=== PATIENT | female | born 1975 | race Hispanic/Latino ===

== ENCOUNTER 2022-12-16 18:36 | Emergency (ER) | payer MEDICAID, SELFPAY ==
[2022-12-16 18:42] VITALS: BP 147/67; PULSE 82; RESP 16; TEMP 36.5; O2SAT 100; BMI 29.8
[2022-12-16 19:20] LABS: Add Manual Diff / Slide Review NO; Basophils Absolute Auto 100 /uL (0-100); Eosinophils Absolute Auto 200 /uL (0-450); Eosinophils Percent Auto 2.8 % (2-4); Hematocrit 28.9 % (36-46); Hemoglobin 10.1 g/dL (12.0-16.0); Lymphocytes Absolute Auto 1900 /uL (1100-4500); Lymphocytes Percent Auto 32.6 % (25-40); Mean Corpuscular HGB Conc 34.9 % (30-36); Mean Corpuscular Hemoglobin 28.5 PG (26-34); Mean Corpuscular Volume 81.5 fL (80-100); Monocytes Absolute Auto 400 /uL (0-900); Monocytes Percent Auto 6.5 % (3-14); Neutrophils Absolute Auto 3200 /uL (1500-7000); Neutrophils Percent Auto 57.1 % (50-75); Platelet Count 324 X10^3/uL (150-400); Red Blood Cell Count 3.55 X10^6/uL (4.0-5.2); Red Cell Distribution Width 14.4 % (11.6-14.8); White Blood Cell Count 5.7 X10^3/uL (4.5-11.0)
[2022-12-16 19:32] LABS: Alanine Aminotransferase 18 IU/L (<35); Albumin 3.9 g/dL (3.5-5.0); Albumin Globulin Ratio 1.1 (1.0-2.8); Alkaline Phosphatase 77 U/L (38-126); Aspartate Aminotransferase 22 IU/L (14-36); Bilirubin Total 0.3 mg/dL (0.2-1.3); Blood Urea Nitrogen 23 mg/dL (7-17); Calcium 9.1 mg/dL (8.4-10.2); Carbon Dioxide 23 mmol/L (22-32); Chloride 98 mmol/L (98-107); Estimated Glomerular Filt Rate 52 mL/min (>60); Globulin 3.4 g/dL (1.7-4.1); Glucose 399 mg/dL (70-100); HEMOLYSIS 19 (0-50); Lipase 348 U/L (23-300); Sodium 131 mmol/L (137-145); Total Protein 7.3 g/dL (6.3-8.2)
--- NOTE | 2022-12-16 19:45 | PC.NURSE ---
c/o frequency urination with dysuria, recent travel,
[2022-12-16] MEDS: SODIUM CHLORIDE 0.9% 1,000 ML 1000 ML IV (19:52)
[2022-12-16 20:07] LABS: Fractionated Inspired Oxygen 21; HCO3 VBG 24 mmol/L (24-28); Oxygen Saturation VBG 51 % (70-75); PO2 VBG 29 mmHg (35-45); Total CO2 VBG 25 mmol/L (24-29); pH VBG 7.36 (7.33-7.43)
[2022-12-16 20:58] LABS: Ketones (Beta-Hydroxybutyrate) 0 mmol/L (<0.27)
--- NOTE | 2022-12-16 21:25 | ED.ABDPAIN ---
HPI - Abdominal Pain General Chief Complaint: Abdominal Pain Stated Complaint: abd pain Time Seen by Provider: 12/16/22 19:40 Source: patient Mode of arrival: Ambulatory Limitations: language barrier (used interpreted line) History of Present Illness HPI narrative: 47-year-old female with a history diabetes on glimepiride and metformin daily. Patient presents with lower abdominal pain more on the right than left but bilaterally as well as bilateral flank pain. She states it feels like when she has a menses but she is not menstruating currently. Patient states last menses was November 15. Patient states no fevers, she is had some chills. She states some nausea but no vomiting she is had some diarrhea intermittent with constipation. No black or bloody stools. She is noted some polyuria, no dysuria. No new vaginal bleeding or discharge. She denies any chest pain or shortness of breath, no syncope. Describes some low-grade fevers. Patient did travel last 3 days he returned on Friday. She presents with another family member who is here with sore throat and upper respiratory symptoms. Patient takes metformin and glimepiride she has been off these medications for several days to a week. Patient states she is had prior appendectomy, hysterectomy as well as cholecystectomy. No known drug allergies. No tobacco, alcohol or illicit. Patient lives on [facility], she went to the primary care clinic there but was told to come here for evaluation. Related Data Home Medications Medication Instructions Recorded Confirmed glimepiride 4 mg tablet 4 mg PO DAILY 12/16/22 12/16/22 metformin 1,000 mg tablet 1,000 mg PO DAILY 12/16/22 12/16/22 Previous Rx's Medication Instructions Recorded glimepiride 4 mg tablet 4 mg PO DAILY #30 tabs 12/16/22 metformin 1,000 mg tablet 1,000 mg PO DAILY #30 tabs 12/16/22 Allergies Allergy/AdvReac Type Severity Reaction Status Date / Time No Known Drug Allergies Allergy Verified 12/16/22 18:42 Review of Systems Review of Systems ROS Unobtainable: All systems reviewed & are unremarkable except as noted in HPI and below Patient History Social History Smoking Status: Never smoker Smoking Status: Never smoker Substance Use Type: does not use Exam Narrative Exam Narrative: GENERAL: Alert and oriented x three, well-appearing female in mild distress. HEENT: Head normocephalic, atraumatic, EOMI, pupils reactive, face symmetric, moist mucous membranes NECK: Supple, full range of motion CARDIOVASCULAR: Regular rate and rhythm without murmurs, rubs or gallops. RESPIRATORY: Breath sounds equal bilaterally, no wheezes rales or rhonchi. No tachypnea accessory muscle use. Speaks in full sentences. ABDOMEN: Soft, nontender on exam. Normoactive bowel sounds all 4 quadrants. No guarding or rebound, rigidity, no mass, no pulsatile mass or bruit. : No CVA tenderness EXTREMITIES: Normal range of motion, no clubbing or edema. Neurovascularly intact NEUROLOGICAL: Cranial nerves II through XII grossly intact. Moving all extremities SKIN: Warm, dry, no petechiae, no rashes or lesions. Initial Vital Signs Initial Vital Signs: Vital Signs Temperature 97.7 F 12/16/22 18:42 Pulse Rate 82 12/16/22 18:42 Respiratory Rate 16 12/16/22 18:42 Blood Pressure 147/67 H 12/16/22 18:42 Pulse Oximetry 100 12/16/22 18:42 Oxygen Delivery Method Room Air 12/16/22 18:42 Course Orders Ordered: ED Orders 12/16/22 18:48 EKG-12 Lead Stat 12/16/22 19:00 Complete Blood Count AUTO DIFF Stat Comprehensive Metabolic Panel Stat Ketones (Beta-Hydroxybutyrate) Stat Lipase Stat 12/16/22 19:54 VBG [Venous Blood Gas] Stat 12/16/22 22:15 Urine Culture Stat Discontinued Medications Sodium Chloride (Normal Saline 0.9%) 1,000 mls @ 1,000 mls/hr IV BOLUS ONE Stop: 12/16/22 20:39 Last Infusion: 12/16/22 21:27 Dose: Infused Documented By: Admin: 12/16/22 19:52 Dose: 1,000 mls/hr Documented By: MYLES Ondansetron HCl (Ondansetron 4 Mg Odt) 4 mg PO NOW PRN PRN Reason: Nausea And Vomiting Ondansetron HCl (Ondansetron 4 Mg/2 Ml Inj) 4 mg IV NOW PRN PRN Reason: Nausea And Vomiting Vital Signs Vital signs: Vital Signs - 8 hr 12/16/22 18:42 12/16/22 22:32 Temperature 97.7 F Pulse Rate 82 69 Respiratory Rate 16 16 Blood Pressure 147/67 H 116/55 L Pulse Oximetry 100 97 Oxygen Delivery Method Room Air MDM - Abdominal Pain Lab Data 12/16/22 19:00 12/16/22 19:00 Labs: Lab Results 12/16/22 12/16/22 Range/Units 19:00 19:54 WBC 5.7 (4.5-11.0) X10^3/uL RBC 3.55 L (4.0-5.2) X10^6/uL Hgb 10.1 L (12.0-16.0) g/dL Hct 28.9 L (36-46) % MCV 81.5 (80-100) fL MCH 28.5 (26-34) PG MCHC 34.9 (30-36) % RDW 14.4 (11.6-14.8) % Plt Count 324 (150-400) X10^3/uL Neut % (Auto) 57.1 (50-75) % Lymph % (Auto) 32.6 (25-40) % Chambers % (Auto) 6.5 (3-14) % Eos % (Auto) 2.8 (2-4) % Baso % (Auto) 1.0 (0-2) % Neut # (Auto) 3200 (9819-6620) /uL Lymph # (Auto) 1900 (3510-8840) /uL Chambers # (Auto) 400 (0-900) /uL Eos # (Auto) 200 (0-450) /uL Baso # (Auto) 100 (0-100) /uL VBG pH 7.36 (7.33-7.43) VBG pCO2 43.0 L (45-50) mmHg VBG pO2 29 L (35-45) mmHg VBG HCO3 24 (24-28) mmol/L VBG Total CO2 25 (24-29) mmol/L VBG O2 Saturation 51 L (70-75) % VBG Base Excess -1.0 L (0-4) mmol/L FiO2 21 Sodium 131 L (137-145) mmol/L Potassium 4.0 (3.4-5.1) mmol/L Chloride 98 (98-107) mmol/L Carbon Dioxide 23 (22-32) mmol/L BUN 23 H (7-17) mg/dL Creatinine 1.28 H (0.52-1.04) mg/dL Estimated GFR 52 L (>60) mL/min BUN/Creatinine Ratio 18.0 (6-22) Glucose 399 H (70-100) mg/dL Calcium 9.1 (8.4-10.2) mg/dL Total Bilirubin 0.3 (0.2-1.3) mg/dL AST 22 (14-36) IU/L ALT 18 (<35) IU/L Alkaline Phosphatase 77 (38-126) U/L Total Protein 7.3 (6.3-8.2) g/dL Albumin 3.9 (3.5-5.0) g/dL Globulin 3.4 (1.7-4.1) g/dL Albumin/Globulin Ratio 1.1 (1.0-2.8) Lipase 348 H (23-300) U/L Ketones 0 (<0.27) mmol/L Point of care testing: Point of Care Testing Test Results Negative Glucose POC 413 Urine Dip Bedside Urine Glucose 1000 mg/dl Bedside Urine Bilirubin - Negative Bedside Urine Ketone - Negative Urine Specific [place] 1.005 Bedside Urine Occult Blood - Negative Bedside Urine pH 7.0 Bedside Urine Protein - Negative Bedside Urine Urobilinogen - Negative Bedside Urine Nitrite - Negative Bedside Urine Leukocytes - Negative Esterase ECG Data Attestation: I personally reviewed and interpreted this ECG as follows: Interpretation: Sinus rhythm rate of 75 AL 164 QRS of [address] QTC [address] No acute [address] elevation depression noted. MDM Narrative Medical decision making narrative: This is a 47-year-old female who presents with lower abdominal pain states feels very similar to her menses but is not currently menstruating. She is nontender on examination workup shows hyperglycemia with a glucose of 399, negative test point of care urine shows glucose but no ketones. No signs of infection. Hemoglobin 10, hematocrit is 28 platelets are normal with a normal white count. VBG shows a pH 7.36. Sodium is 131 on corrected, potassium of 4, BUN 23 with creatinine of 1.28, glucose 399 with normal LFTs and a lipase of 348. Anion gap is 10. No signs of DKA. Patient has been off her medications for several days some of her symptoms may be secondary to hyperglycemia abdominal exam is overall reassuring. Discussed with patient will send urine for culture but did not show signs of infection. Patient felt safe and appropriate for discharge home medications were refilled for patient to restart. Reviewed patient's findings. Patient feels comfortable with plan. Discharge Plan Departure Patient Disposition: Home Clinical Impression: Hyperglycemia, Abdominal pain Activity Restrictions/Additional Instructions: Your glucose today is elevated, please restart your home medications. A prescription was sent to [facility] on [facility]. Please follow-up with the physician on [facility] for recheck, your creatinine is slightly elevated. Please return for new or worsening symptoms, new or worsening abdominal back or flank pain, persistent vomiting, passing out, black or bloody stools or other new or concerning changes. Prescriptions: New glimepiride 4 mg tablet 4 mg PO DAILY Qty: 30 0RF metformin 1,000 mg tablet 1,000 mg PO DAILY Qty: 30 0RF No Action metformin 1,000 mg tablet 1,000 mg PO DAILY glimepiride 4 mg tablet 4 mg PO DAILY Referrals: Fadia Wilson PA-C [Primary Care Provider] - Stand Alone Forms: Patient Portal/API
[2022-12-16 22:32] VITALS: BP 116/55; PULSE 69; RESP 16; O2SAT 97
== END 2022-12-16 22:36 | disposition home or self-care (01) ==
PROVIDERS: Emergency Provider Emergency Medicine; PCP Physician Assistant
DX: E11.65 Type 2 diabetes mellitus with hyperglycemia (principal); R10.9 Unspecified abdominal pain
CPT/HCPCS: 80053; 81002; 81003; 81025; 82009; 82805; 82962; 83690; 85025; 87086; 93005; 96360; 96361; 99283; 99284

== ENCOUNTER → 2023-04-07 10:34 | Outpatient (CLI) | payer SELFPAY ==
[2023-04-07 21:21] LABS: Alanine Aminotransferase 21 IU/L (<35); Albumin Globulin Ratio 1.2 (1.0-2.8); Alkaline Phosphatase 92 U/L (38-126); Aspartate Aminotransferase 25 IU/L (14-36); BUN Creatinine Ratio 17.9 (6-22); Bilirubin Total 0.6 mg/dL (0.2-1.3); Blood Urea Nitrogen 17 mg/dL (7-17); Calcium 9.1 mg/dL (8.4-10.2); Carbon Dioxide 26 mmol/L (22-32); Chloride 98 mmol/L (98-107); Cholesterol 226 mg/dL (140-199); Estimated Glomerular Filt Rate > 60 mL/min (>60); Globulin 3.3 g/dL (1.7-4.1); Glucose 274 mg/dL (70-100); HDL Cholesterol 40 mg/dL (40-60); HEMOLYSIS < 15 (0-50); LDL Cholesterol Calculated 139 mg/dL (<100); Potassium 4.6 mmol/L (3.4-5.1); Sodium 132 mmol/L (137-145); Total Protein 7.3 g/dL (6.3-8.2); Triglycerides 233 mg/dL (35-150)
[2023-04-07 21:22] LABS: Hemoglobin A1C% w Est Avg Glu 11.8 % (4.0-6.0)
[2023-04-07 21:24] LABS: Add Manual Diff / Slide Review NO; Basophils Absolute Auto 100 /uL (0-100); Basophils Percent Auto 1.1 % (0-2); Eosinophils Absolute Auto 200 /uL (0-450); Eosinophils Percent Auto 2.8 % (2-4); Hematocrit 33.9 % (36-46); Hemoglobin 11.4 g/dL (12.0-16.0); Lymphocytes Absolute Auto 1700 /uL (1100-4500); Lymphocytes Percent Auto 29.6 % (25-40); Mean Corpuscular HGB Conc 33.6 % (30-36); Mean Corpuscular Hemoglobin 26.3 PG (26-34); Mean Corpuscular Volume 78.4 fL (80-100); Monocytes Absolute Auto 400 /uL (0-900); Monocytes Percent Auto 6.3 % (3-14); Neutrophils Absolute Auto 3400 /uL (1500-7000); Neutrophils Percent Auto 60.2 % (50-75); Platelet Count 322 X10^3/uL (150-400); Red Blood Cell Count 4.32 X10^6/uL (4.0-5.2); Red Cell Distribution Width 14.1 % (11.6-14.8); White Blood Cell Count 5.7 X10^3/uL (4.5-11.0)
[2023-04-07 21:46] LABS: Creatinine Urine Random 164.3 mg/dL
[2023-04-07 21:51] LABS: Microalbumi Creatinin Ratio Ur 33.4 ug/mg CR (<30); Microalbumin Urine Random 5.5 mg/dL (0-1.6)
[2023-04-07 21:56] LABS: TSH w/ Reflex to FT4 3.54 uIU/mL (0.47-4.68)
== END ==
PROVIDERS: PCP Physician Assistant; Visit Provider Physician Assistant Medical
DX: E11.9 Type 2 diabetes mellitus without complications (principal)
CPT/HCPCS: 80053; 80061; 82043; 82570; 83036; 84443; 85025

== ENCOUNTER → 2023-06-09 08:58 | Outpatient (CLI) | payer SELFPAY ==
[2023-06-09 19:02] LABS: HEMOLYSIS < 15 (0-50); Iron 58 ug/dL (37-170)
[2023-06-09 19:07] LABS: Cholesterol 159 mg/dL (140-199); HDL Cholesterol 31 mg/dL (40-60); LDL Cholesterol Calculated 66 mg/dL (<100); Triglycerides 312 mg/dL (35-150)
[2023-06-09 19:21] LABS: Percent Iron Saturation 15 % (15-50); Total Iron Binding Capacity 384 ug/dL (265-497); Transferrin 312 mg/dL (206-381)
[2023-06-09 19:22] LABS: Hemoglobin A1C% w Est Avg Glu 12.1 % (4.0-6.0)
[2023-06-09 19:42] LABS: Ferritin 10 ng/mL (6-137)
== END ==
PROVIDERS: PCP Physician Assistant Medical; Visit Provider Physician Assistant
DX: E11.9 Type 2 diabetes mellitus without complications (principal); E78.5 Hyperlipidemia, unspecified; D64.9 Anemia, unspecified
CPT/HCPCS: 80061; 82728; 83036; 83540; 83550

== ENCOUNTER → 2023-10-21 09:28 | Outpatient (CLI) | payer SELFPAY ==
[2023-10-21 21:19] LABS: Hemoglobin A1C% w Est Avg Glu 9.7 % (4.0-6.0)
== END ==
PROVIDERS: PCP Physician Assistant Medical
DX: E11.9 Type 2 diabetes mellitus without complications (principal)
CPT/HCPCS: 83036